=== PATIENT | male | born 1950 | race Caucasian/White ===

== ENCOUNTER 2017-01-20 05:44 | Inpatient (IN) | payer MEDICARE ==
[2017-01-20] VITALS (9 sets, daily range): BP systolic 140–159; BP diastolic 74–89; PULSE 53–83; RESP 16–18; TEMP 97.5–98.2; O2SAT 92–98
[~2017-01-20] VITALS: Ht 167.6 cm; Wt 98.7 kg
[2017-01-20] MEDS ORDERED: Hold AM Insulin & AM Hypoglycemic medications in diabetic patients XX PRN (06:30)
[2017-01-20] MEDS ORDERED: SODIUM CHLORID 0.9% 500 ML IV SCH (06:30)
[2017-01-20] MEDS: LACTATED RINGER'S 1000 ML IV SCH (06:30)
[2017-01-20] MEDS ORDERED: ceFAZolin 2 GM PREMIX 50 ML IV SCH (06:30)
[2017-01-20] MEDS ORDERED: POVIDONE IODINE 5% (ANTISEPSIS KIT) 4 APPLICATIONS EACH NARE SCH (06:30)
[2017-01-20] MEDS ORDERED: NO Heparin, Lovenox, Coumadin at least 12 hours prior to procedure. XX PRN (06:30)
[2017-01-20] MEDS ORDERED: MUPIROCIN 2% OINT 1 APPLIC/GM SYR NASAL SCH (06:30)
[2017-01-20] MEDS ORDERED: LORazepam 1 MG TAB SL SCH (06:30)
[2017-01-20] MEDS ORDERED: NS 1000 ML IV SCH (06:30)
[2017-01-20] MEDS ORDERED: METOPROLOL TARTRATE 25 MG TAB PO PRN (06:30)
[2017-01-20] MEDS ORDERED: CHLORHEXIDINE GLUCONATE 2 % 1 PACK (2 CLOTHS) TOP SCH (06:30)
[2017-01-20] MEDS ORDERED: INSULIN HUMAN REGULAR 1,000 UNITS/10 ML VIAL SQ PRN (06:30)
[2017-01-20] MEDS ORDERED: VANCOMYCIN 1000 MG/NS 250 ML IV SCH ×2 (06:30)
[2017-01-20 06:31] LABS: AUTOMATED NEUTROPHIL # 3.4 TH/MM3 (1.8-7.7); BASOPHIL % 0.8 % (0.0-2.0); EOSINOPHIL # 0.2 TH/MM3 (0-0.4); EOSINOPHIL % 3.6 % (0.0-4.0); HEMATOCRIT 39.2 % (39.0-51.0); HEMO FLAGS DIFF FINAL; LYMPH % 23.7 % (9.0-44.0); LYMPHOCYTE # 1.3 TH/MM3 (1.0-4.8); MEAN CELL VOLUME 88.5 FL (80.0-100.0); MEAN CORPUSCULAR HEMOGLOBIN 30.5 PG (27.0-34.0); MEAN CORPUSCULAR HGB CONC 34.5 % (32.0-36.0); MONO % 12.3 % (0.0-8.0); NEUT % 59.6 % (16.0-70.0); PLATELET COUNT 145 TH/MM3 (150-450); RED BLOOD COUNT 4.44 MIL/MM3 (4.50-5.90); RED CELL DISTRIBUTION WIDTH 13.6 % (11.6-17.2); WHITE BLOOD COUNT 5.7 TH/MM3 (4.0-11.0)
[2017-01-20] MEDS ORDERED: CARV3.12 PO (06:34)
[2017-01-20] MEDS ORDERED: RANI300T PO (06:34)
[2017-01-20] MEDS ORDERED: HYDR25TA5 PO (06:34)
[2017-01-20] MEDS ORDERED: PRAV80TA2 PO (06:34)
[2017-01-20] MEDS ORDERED: TERA10CA3 PO (06:34)
[2017-01-20] MEDS ORDERED: ASPI81TA81 (06:34)
[2017-01-20] MEDS ORDERED: LOSA100T PO (06:34)
[2017-01-20] MEDS ORDERED: AMLO5TAB2 PO (06:34)
[2017-01-20 06:38] LABS: APTT (PATIENT) 25.7 SEC (24.3-30.1); PROTHROMBIN TIME - PATIENT 11.3 SEC (9.8-11.6)
[2017-01-20 06:58] LABS: BICARBONATE 29.6 MEQ/L (21.0-32.0); POTASSIUM 3.8 MEQ/L (3.5-5.1)
[2017-01-20] MEDS ORDERED: HEPARIN-NS/PF INJ 500 ML ONE (09:08)
[2017-01-20] MEDS ORDERED: LIDOCAINE HCL 2% 50 ML VIAL ONE (09:09)
[2017-01-20] MEDS ORDERED: VANCOMYCIN HCL 1000 MG VIAL ONE (09:09)
[2017-01-20] MEDS ORDERED: VANCOMYCIN 500 MG VIAL ONE (09:09)
[2017-01-20] MEDS ORDERED: ceFAZolin INJ 1,000 MG VIAL ONE (09:10)
[2017-01-20] MEDS ORDERED: ISOPROTERENOL HCL 1 MG/5 ML AMP ONE (09:26)
[2017-01-20] MEDS ORDERED: SODIUM CHLORIDE 0.9% FLUSH 5 ML FLUSH IVF PRN (11:45)
[2017-01-20] MEDS ORDERED: LORazepam 2 MG/ML VIAL IV PRN (11:45)
[2017-01-20] MEDS ORDERED: ATROPINE SULFATE 1 MG/ML VIAL IV PRN (11:45)
[2017-01-20] MEDS ORDERED: BACITRACIN OINT 0.9 GM PKT TOP ONE (11:45)
[2017-01-20] MEDS ORDERED: LIDOCAINE HCL 1% 50 ML VIAL INFIL PRN (11:45)
[2017-01-20] MEDS ORDERED: METOCLOPRAMIDE HCL 10 MG/2 ML VIAL IV PRN (11:45)
[2017-01-20] MEDS ORDERED: ONDANSETRON HCL 4 MG/2 ML VIAL IV PRN (11:45)
[2017-01-20] MEDS ORDERED: SODIUM CHLOR 0.9% 250 ML INJ 250 ML IV PRN (11:45)
[2017-01-20] MEDS ORDERED: MIDAZOLAM HCL 2 MG/2 ML VIAL ONE (12:01)
[2017-01-20] MEDS ORDERED: DO NOT ADM ANY ANTICOAGULANT DRUGS XX PRN (12:15)
[2017-01-20] MEDS ORDERED: PROPOFOL 200 MG/20 ML AMP IV ONE (14:49)
[2017-01-20] MEDS: ceFAZolin 2 GM PREMIX 50 ML IV SCH (18:03)
[2017-01-20] MEDS: oxyCODONE/ACETAMINOPHEN 5 MG/325 MG TAB PO PRN ×2 (18:19→22:54)
--- NOTE | 2017-01-20 18:30 | EKG ---
Date Performed: 01/20/2017 Time Performed: 06:35:48 PTAGE: 67 years EKG: Sinus bradycardia with PVC(s) Left bundle branch block Abnormal ECG NO PREVIOUS TRACING DOCTOR: Emanuel Markham Interpretating Date/Time 01/20/2017 18:28:58
[2017-01-20] MEDS: CARVEDILOL 3.125 MG TAB PO SCH (22:54)
[2017-01-20] MEDS: TERAZOSIN HCL 5 MG CAP PO SCH (22:55)
[2017-01-20] MEDS: FAMOTIDINE 20 MG TAB PO SCH (22:55)
[2017-01-20] MEDS: SODIUM CHLORIDE 0.9% FLUSH 5 ML FLUSH IVF SCH (22:57)
[2017-01-21] VITALS (26 sets, daily range): BP systolic 118–145; BP diastolic 60–89; PULSE 64–78; RESP 16–18; TEMP 97.8–98.5; O2SAT 93–96
[2017-01-21] MEDS: ceFAZolin 2 GM PREMIX 50 ML IV SCH ×2 (02:42→08:52)
[2017-01-21] MEDS: oxyCODONE/ACETAMINOPHEN 5 MG/325 MG TAB PO PRN ×4 (02:43→21:22)
--- NOTE | 2017-01-21 05:37 | MA ---
cc: LUMA KING M.D. DATE 01/20/2017 PROCEDURE PERFORMED Electrophysiology study and CS cannulation. INDICATIONS Mr. Cadena is a 67-year-old gentleman with congestive heart failure, cardiomyopathy, ejection fraction 25% to undergo electrophysiology study. The risks, the nature and the benefit of the procedure were clearly stated to him. The risks include pneumothorax, cardiac perforation, stroke, need for open heart surgery and even . The patient understood and agreed to proceed. PROCEDURE After written informed consent was obtained, the patient was brought to the EP Lab where he was prepped and draped in usual sterile fashion. Conscious sedation was initiated and maintained throughout the procedure by the anesthesiologist. Once sedation was verified, the right inguinal area anesthetized with 2% Xylocaine. Using the modified Seldinger technique, the right femoral vein was cannulated on four occasions, four guidewires were advanced. Over the wire three 5 and a 6-Bruneian Hemaquet were advanced. Then under fluoroscopic guidance through the 5 and 6-Bruneian Hemaquet, four 5-Bruneian Agus curved quadripolar electrophysiology catheters was positioned at the His, upper right atrium, coronary sinus and right ventricular apex. Basic interval was measured. HV was around 65 milliseconds. At this point atrial pacing protocol was performed. Atrial protocol consisted of incremental atrial pacing as well as program stimulation with 110 cycle length and up one extrastimuli delivered. No tachyarrhythmia was induced. Then ventricular pacing protocol was performed. Ventricular pacing protocol consisted of incremental ventricular pacing as well as program stimulation with 110 cycle length and up to three extrastimuli delivered. During ventricular pacing protocol blood pressure dropped to systolic in the 60s. increased with medication. I decided to discontinue ventricular pacing protocol. All catheters and Hemaquets were removed. The patient is going to be kept on the table and a biventricular pacer defibrillator will be implanted for sudden prevention and resynchronization therapy. The patient tolerated the procedure, blood loss minimal. 1. Electrocardiogram: At baseline the patient was in sinus. Postprocedure electrocardiogram was unchanged. 2. Basic Interval: Basic interval was around 840, AH at 140 and HV at 65 milliseconds. 3. Atrial Pacing Protocol: Wenckebach of the node was around 700 milliseconds. 4. Ventricular Pacing Protocol: No tachyarrhythmia was induced. Ventricular pacing protocol was discontinued due to severe hypotension. CONCLUSION Negative electrophysiology study for supraventricular tachyarrhythmia. COMMENT AND RECOMMENDATIONS The patient has congestive heart failure Class III on optimal medical treatment. Ejection fraction 25%, QRS over 140 milliseconds. The patient will be kept on the table and biventricular pacer defibrillator will be implanted for sudden prevention and resynchronization therapy. Luma King MD HS/SSB /11:12 PM /5:16 AM
[2017-01-21] MEDS: HYDROCHLOROTHIAZIDE 25 MG TAB PO SCH (08:49)
[2017-01-21] MEDS: amLODIPine BESYLATE 5 MG TAB PO SCH (08:50)
[2017-01-21] MEDS: LOSARTAN 50 MG TAB PO SCH (08:51)
[2017-01-21] MEDS: FAMOTIDINE 20 MG TAB PO SCH ×2 (08:51→21:22)
[2017-01-21] MEDS: SODIUM CHLORIDE 0.9% FLUSH 5 ML FLUSH IVF SCH ×2 (08:52→21:23)
[2017-01-21] MEDS: PRAVASTATIN SOD 80 MG TAB PO SCH (08:52)
[2017-01-21] MEDS: CARVEDILOL 3.125 MG TAB PO SCH ×2 (08:52→21:22)
--- NOTE | 2017-01-21 12:30 | EKG ---
Date Performed: 01/20/2017 Time Performed: 12:27:36 PTAGE: 67 years EKG: Sinus rhythm WITH P WAVE SYNCHRONOUS VENTRICULAR PACING PACING WAS NOT ON PREVIOUS TRACING PREVIOUS TRACIN01/20/2017 06.35 DOCTOR: Kahlil Urias Interpretating Date/Time 01/21/2017 12:28:59
--- NOTE | 2017-01-21 12:34 | PD.CARD.PN ---
Subjective Subjective Remarks Awake, alert, s/p BiV implant. Had significant diaphragmatic stimulation and the LV lead was turned off. He is pending an epicardial lead by Dr. Watson, per Dr. Madison's d/w him. Objective Medications Current Medications Medications (Trade) Dose Ordered Sig/Meng Route Start Time Stop Time Status Last Admin (Lr 1000 ml Inj) 1,000 ml @ 30 mls/hr Q24H IV 01/20/17 06:30 Miscellaneous Information Hold AM Insulin & ... UNSCH PRN XX 01/20/17 06:30 01/24/17 06:29 Miscellaneous Information NO Heparin, Loven... UNSCH PRN XX 01/20/17 06:30 01/24/17 06:29 (NS 1000 ml Inj) 1,000 ml @ 30 mls/hr Q24H IV 01/20/17 06:30 (NS Flush) 2 ml BID IVF 01/20/17 21:00 01/21/17 08:52 (NS Flush) 2 ml UNSCH PRN IVF 01/20/17 11:45 (Percocet 5-325 Mg) 1 tab Q4H PRN PO 01/20/17 11:45 01/21/17 08:51 (Percocet 5-325 Mg) 2 tab Q4H PRN PO 01/20/17 11:45 (Atropine Inj) 0.5 mg UNSCH PRN IV 01/20/17 11:45 (Reglan Inj) 10 mg Q4H PRN IV 01/20/17 11:45 (Zofran Inj) 4 mg Q4H PRN IV 01/20/17 11:45 (Norvasc) 5 mg DAILY PO 01/21/17 09:00 01/21/17 08:50 (Coreg) 3.125 mg BID PO 01/20/17 21:00 01/21/17 08:52 (Hydrodiuril) 25 mg DAILY PO 01/21/17 09:00 01/21/17 08:49 (Cozaar) 100 mg DAILY PO 01/21/17 09:00 01/21/17 08:51 (Pravachol) 80 mg DAILY PO 01/21/17 09:00 01/21/17 08:52 (Pepcid) 20 mg BID PO 01/20/17 21:00 01/21/17 08:51 (Hytrin) 20 mg HS PO 01/20/17 21:00 01/20/17 22:55 Vital Signs / I&O Vital Signs Date Time Temp Pulse Resp B/P Pulse Ox O2 Delivery O2 Flow Rate FiO2 01/21/17 09:59 18 01/21/17 08:00 98.1 73 18 145/83 93 01/21/17 06:00 69 01/21/17 05:00 68 01/21/17 04:00 68 01/21/17 03:27 97.9 70 16 131/66 93 01/21/17 03:00 70 01/21/17 02:00 70 01/21/17 01:39 97.9 70 16 118/69 94 01/21/17 01:00 68 01/21/17 00:00 74 01/20/17 22:00 74 01/20/17 21:00 74 01/20/17 20:28 98.2 83 16 140/74 92 01/20/17 20:00 78 01/20/17 19:00 69 01/20/17 16:07 69 01/20/17 15:00 97.6 78 18 147/82 97 01/20/17 14:54 69 I/O 01/20/17 01/20/17 01/20/17 01/21/17 01/21/17 01/21/17 07:00 15:00 23:00 07:00 15:00 23:00 Intake Total 620 ml Output Total 400 ml 150 ml Balance -400 ml 620 ml -150 ml Intake Oral 420 ml IV Total 200 ml Output Urine Total 400 ml 150 ml # Voids 2 Physical Exam GENERAL: Well-nourished, well-developed patient. SKIN: Warm and dry. LCW incision well approximated without erythema or drainage. HEAD: Normocephalic. EYES: No scleral icterus. No injection or drainage. NECK: Supple, trachea midline. No JVD or lymphadenopathy. CARDIOVASCULAR: Regular rate and rhythm without murmurs, gallops, or rubs. RESPIRATORY: Breath sounds equal bilaterally. No accessory muscle use. GASTROINTESTINAL: Abdomen soft, non-tender, nondistended. EXTREMITIES: No cyanosis, or edema. NEUROLOGICAL: Awake, alert, and oriented x 3. Non-focal. Assessment and Plan Problem List: (1) Hypertension Assessment and Plan: Stable on home medications. (2) Cardiomyopathy Assessment and Plan: Meds optimized. BiV implanted but LV lead off d/t diaph. stim. pending epicardial lead implant. (3) Diaphragmatic stimulation by pacemaker Assessment and Plan: NPO after mn for epicardial lead implantation tomorrow. (4) S/P biventricular cardiac pacemaker procedure Assessment and Plan: interrogation stable, incision clean. Will get CXR for post procedure eval. Assessment and Plan Assessment and plan d/w pt., , RN, Dr. Madison, CHRIS Matamoros. Problem Qualifiers (1) Hypertension: Qualified Code: I10 - Essential hypertension (2) Cardiomyopathy: Qualified Code: I42.9 - Cardiomyopathy, unspecified type Nickie Norris Jan 21, 2017 12:34
--- NOTE | 2017-01-21 12:53 | EKG ---
Date Performed: 01/21/2017 Time Performed: 06:02:34 PTAGE: 67 years EKG: ATRIAL PACED RHYTHM VENTRICULAR PREMATURE COMPLEX LBBB PREVIOUS TRACING : 01/20/2017 12.27 DOCTOR: Kahlil Urias Interpretating Date/Time 01/21/2017 12:53:02
--- NOTE | 2017-01-21 15:33 | RADRPT ---
EXAM DATE/TIME: 01/21/2017 12:45 [facility] COMPARISON: No previous studies available for comparison. INDICATIONS : Evaluate chest post procedure MEDICAL HISTORY : Cardiovascular disease. SURGICAL HISTORY : None. ENCOUNTER: Initial ACUITY: 1 day PAIN SCORE: 2/10 LOCATION: chest FINDINGS: Portable upright expiratory view the chest demonstrates a normal-sized cardiac silhouette. Left chest wall cardiac pacing device/AICD is present. Biventricular leads are present. Lungs are underinflated with atelectasis at the bases. No pneumothorax is identified. Left chest wall appearance suggests po ssible old rib fractures. There are degenerative changes at the left glenohumeral joint. CONCLUSION: No pneumothorax is visualized following recent procedure. No acute finding is identified. Augustine Lara MD on January 21, 2017 at 15:30 Board Certified Radiologist. This report was verified electronically.
[2017-01-21] MEDS ORDERED: ceFAZolin 2 GM PREMIX 50 ML IV SCH (17:45)
[2017-01-21] MEDS ORDERED: CHLORHEXIDINE GLUCONATE 4% SOLN 120 ML BTL TOPICAL SCH (17:45)
[2017-01-21] MEDS ORDERED: SODIUM CHLORIDE 0.9% FLUSH 5 ML FLUSH IV FLUSH PRN (17:45)
[2017-01-21] MEDS ORDERED: CEFAZOLIN INJ 500 MG in SODIUM CHLORIDE 0.9% IRR BTL 500 ML IRRIGATION SCH (17:45)
[2017-01-21] MEDS ORDERED: SODIUM CHLORIDE 0.9% FLUSH 5 ML FLUSH IV FLUSH SCH (21:00)
[2017-01-21] MEDS: TERAZOSIN HCL 5 MG CAP PO SCH (21:22)
[2017-01-22] VITALS (23 sets, daily range): BP systolic 130–153; BP diastolic 78–88; PULSE 68–74; RESP 16; TEMP 97.4–98.3; O2SAT 92–94
[2017-01-22 04:01] LABS: BLOOD, URINE NEG (NEG); GLUCOSE,URINE NEG (NEG); KETONE, URINE NEG (NEG); MUCUS URINE FEW /lpf (OCC); NITRITE,URINE NEG (NEG); URINE COLOR LIGHT-YELLOW (YELLW/STRAW)
[2017-01-22 04:36] LABS: COMMENT (UR) CULT NOT INDICATED; CULTURE IF INDICATED CULT NOT INDICATED
[2017-01-22] MEDS: CARVEDILOL 3.125 MG TAB PO SCH ×2 (06:16→22:58)
[2017-01-22] MEDS: oxyCODONE/ACETAMINOPHEN 5 MG/325 MG TAB PO PRN ×3 (06:17→22:58)
[2017-01-22] MEDS: LACTATED RINGER'S 1000 ML IV SCH (06:21)
[2017-01-22] MEDS ORDERED: HEPARIN SODIUM - SQ 10,000 UNITS/ML VIAL ONE (07:18)
[2017-01-22] MEDS ORDERED: BUPIVACAINE LIPOSO PF 1.3% INJ 20 ML, DEXAMETHASONE INJ 4 MG in SODIUM CHLORIDE 0.9% IN... PERIART SCH (07:30)
[2017-01-22] MEDS: SODIUM CHLORIDE 0.9% FLUSH 5 ML FLUSH IVF SCH ×2 (09:00→21:00)
[2017-01-22] MEDS ORDERED: ONDANSETRON HCL 4 MG/2 ML VIAL IV PUSH PRN (10:15)
[2017-01-22] MEDS ORDERED: SODIUM CHLORIDE 0.9% FLUSH 5 ML FLUSH IV FLUSH PRN (10:15)
[2017-01-22] MEDS ORDERED: RESP: ALBUTEROL 2.5 MG/3 ML NEB (PRN) NEB (10:15)
[2017-01-22] MEDS ORDERED: MAGNESIUM HYDROXIDE SUSP 30 ML CUP PO PRN (10:15)
[2017-01-22] MEDS ORDERED: Post-op Orders (for Pharmacy) MISC OTHER ONE (10:15)
[2017-01-22] MEDS ORDERED: oxyCODONE/ACETAMINOPHEN 5 MG/325 MG TAB PO PRN ×2 (10:15)
[2017-01-22] MEDS ORDERED: ACETAMINOPHEN 325 MG TAB PO PRN (10:15)
[2017-01-22] MEDS ORDERED: DEXAMETHASONE SOD PHOS 4 MG/ML VIAL ONE (10:24)
[2017-01-22] MEDS ORDERED: fentaNYL CITRATE 250 MCG/5 ML AMP ONE (10:34)
[2017-01-22] MEDS ORDERED: *morphine SULFATE 8 MG/ML PERIprocedure ONLY ONE ×3 (10:36→11:23)
--- NOTE | 2017-01-22 10:44 | MB ---
cc: MICHEL BARBOSA MD DATE OF CONSULTATION 01/21/2017 DATE OF 1950 IDENTIFYING DATA This is a 67-year-old male. PHYSICIANS Dr. John Madison. PRIMARY CARE PHYSICIAN Gabby Clark, physician advertising sales assistant. HISTORY OF PRESENT ILLNESS The patient apparently presented to Dr. Madison's office reporting dyspnea and fatigue, also worsening moderate dyspnea was first noted a few months ago. Shortness of breath occurs with minimal levels of exertion. Denied having any chest pain or anginal discomfort. No palpitations. No syncope. No edema. No weight change. No recent fever, chills, cough. He underwent echocardiogram which showed cardiomyopathy, EF of 25%, underwent EP study, CS cannulation by Dr. Madison on 01/20/2017. The patient had negative EP study for SVT. The patient has congestive heart failure Class III an optimal medical treatment, EF of 25, QRS over 140 milliseconds. BiV pacer defibrillator was implanted for sudden prevention, resynchronization therapy. However, the patient had significant diaphragmatic stimulation. The LV lead was turned off. We were consulted to evaluate for epicardial lead placement in the a.m. The patient also had diaphragmatic stimulation post the LV lead placement. Therefore it was also turned off. PAST MEDICAL HISTORY 1. Sleep apnea. 2. Essential hypertension. 3. Gastroesophageal reflux disease. 4. Left bundle-branch block. 5. Hyperlipidemia. 6. Nonischemic cardiomyopathy. PAST SURGICAL HISTORY 1. Hernia repair. 2. Knee arthroscopic surgery. ALLERGIES The patient has no known allergies. MEDICATIONS 1. Terazosin. 2. Losartan. 3. Coreg. 4. Amlodipine. 5. Pravachol. 6. Ranitidine. 7. Aspirin. 8. Hydrochlorothiazide. FAMILY HISTORY Mother had kidney disease. Father had a stroke. SOCIAL HISTORY Occasional alcohol. No tobacco. REVIEW OF SYSTEMS As above in the HPI. PHYSICAL EXAMINATION VITAL SIGNS: Blood pressure 118/70, heart rate of 70, afebrile. GENERAL: The patient is awake and alert, in no acute distress. HEENT: Head is normocephalic, atraumatic. Pupils equal, reactive. Oral mucosa pink, moist. NECK: Supple. No JVD. HEART SOUNDS: S1-S2. Regular rate and rhythm. No audible rubs, murmurs, gallops. LUNGS: Clear to auscultation. No wheezes, rales or rhonchi. CHEST: He has a dressing over his left upper chest wall. ABDOMEN: Soft, nontender. No masses or organomegaly. EXTREMITIES: No cyanosis, clubbing or edema. LABORATORY FINDINGS Hemoglobin 13, hematocrit 39, white cell count 5.7, platelet count 145. Sodium 142, potassium 3.8, BUN 20, creatinine 1.08. INR 1.0. CHEST X-RAY No pneumothorax post recent EP study and placement of BiV defibrillator. Normal-sized cardiac silhouette. Left chest wall appearance suggested some possible old rib fractures. IMPRESSION This is a 67-year-old male with nonischemic cardiomyopathy, EF of 25%, CHF Class III, status post EP study which was negative. BiV ICD was placed. The patient had significant diaphragmatic stimulation. The LV lead was turned off. We were consulted for the epicardial lead placement. PLAN The patient will be scheduled for a left thoracotomy with epicardial lead placement and related procedures. The procedures, alternatives and risks will be discussed with Dr. Michel Barbosa. Dictated by FARZANEH Matamoros Michel MCDONOUGH/LANDEN /5:26 PM /10:35 AM
--- NOTE | 2017-01-22 10:59 | RADRPT ---
EXAM DATE/TIME: 01/22/2017 10:27 [facility] COMPARISON: CHEST SINGLE AP, January 21, 2017, 12:45. INDICATIONS : Evaluate heart and lungs post Thoracotomy. MEDICAL HISTORY : Cerebrovascular disease. SURGICAL HISTORY : Pacemaker. ENCOUNTER: Initial ACUITY: 1 day PAIN SCORE: Non-responsive. LOCATION: chest FINDINGS: Mild consolidation and small effusions seen of both bases, left more so than right. I don't see a pne umothorax. Mild cardiomegaly similar to before. Patient has a cardiac pacer/defibrillator. 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 CONCLUSION: Worsening bibasilar consolidation, especially on the left. Augustine Pettit MD on January 22, 2017 at 10:57 Board Certified Radiologist. This report was verified electronically.
[2017-01-22] MEDS: ACETAMINOPHEN 1000 MG/100 ML VIAL IV SCH ×2 (11:15→16:15)
[2017-01-22] MEDS: KETOROLAC TROMETHAMINE 30 MG/ML (IVP) VIAL IV PUSH SCH ×2 (11:15→17:00)
[2017-01-22] MEDS ORDERED: ONDANSETRON HCL 4 MG/2 ML VIAL IV PUSH ONE (12:00)
[2017-01-22] MEDS ORDERED: PROPOFOL 200 MG/20 ML AMP IV ONE (12:00)
--- NOTE | 2017-01-22 12:07 | PD.OP ---
cc: Lauren Watson MD; Frankie Madison MD Operative Report Date of Surgery: Jan 22, 2017 Preoperative Diagnosis: Postoperative Diagnosis: Procedure: 1. Left Lateral Mini-Thoracotomy 2. Epicardial Left Ventricular Lead Placement 3. Removal of Coronary Sinus Lead 4. Removal and Replacement of BiVentricular Pacemaker-AICD Generator Device 5. Intercostal nerve Block. . Surgeon: Lauren Watson Drier Helper(s): Sebastian Bhagat Operation and Findings: PREOPERATIVE DIAGNOSIS 1. Cardiomyopathy 2. CHF POSTOPERATIVE DIAGNOSIS same PROCEDURES 1. Left Lateral Mini-Thoracotomy 2. Epicardial Left Ventricular Lead Placement 3. Removal of Coronary Sinus Lead 4. Removal and Replacement of BiVentricular Pacemaker-AICD Generator Device 5. Intercostal nerve Block. SURGEON Lauren Watson MD RENEWABLE [employer]GY DIVISION MANAGER Star Bhakta [facility] ANESTHESIA General Double-lumen endotracheal. TOP TAPER MACHINE PITO Raza MD OPERATIVE TIME Please see record. COMPLICATIONS None. INDICATION FOR PROCEDURE The patient is a 67yo with cardiomyopathy and recurrent CHF who is being brought to the operating room for epicardial left ventricular lead placement following percutaneous CS lead placement with diaphragmatic pacing. DESCRIPTION OF PROCEDURE The patient was brought to the operating suite and placed in supine position with the left chest slightly elevated. Following satisfactory induction of general endotracheal anesthesia, he was prepped and draped in the usual sterile fashion. A mini-thoracotomy (5 cm) was then performed in the 4th ICS anterior axillary line and carried down to the pleura. 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 With gentle sharp and blunt dissection, the left pleural space was entered. The pericardium was identified. There was a thick layer of fat overlying the pericardium which was dissected free. A pericardiotomy was performed posterior to the phrenic nerve, with care being taken to avoid direct or traction injury to the neurovascular bundle, and viable left ventricular muscle identified. A [employer] LV screw in lead was placed on the ventricular surface. Serial # [id number], REF # [id number]. Parameters measured were excellent with threshold of 1.0 V at 10.5 ms and impedence of 430 ohms. The previously closed infraclavicular incision was opened and the pocket irrigated with antibiotic solution. The malfunctioning coronary sinus lead was easily extracted with gentle traction and removed. The RA and RV leads were disconnected from the generator device it was replaced with a new device Serial # [id number]. The lead was tunneled and connected to the generator device as were the RA & RV leads. A #24-Azeri Hung drain was placed in the pleural space. Intercostal nerve block was performed at the level of the incision and 2 rib spaces above and below using Exparel solution. Wounds were closed with 2-0, 3-0, and 4-0 Monocryl. The patient tolerated the procedure well and postoperatively went to recovery in stable condition. Lauren Watson MD Jan 22, 2017 12:07
[2017-01-22] MEDS ORDERED: CEPH-460 PO (14:21)
[2017-01-22] MEDS: RESP: ALBUTEROL 2.5 MG/3 ML NEB (SCH) NEB ×2 (16:40→20:33)
[2017-01-22] MEDS: TERAZOSIN HCL 5 MG CAP PO SCH (21:00)
[2017-01-22] MEDS: FAMOTIDINE 20 MG TAB PO SCH (21:00)
[2017-01-22] MEDS: DOCUSATE CALCIUM 240 MG CAP PO SCH (22:59)
[2017-01-22] MEDS: SODIUM CHLORIDE 0.9% FLUSH 5 ML FLUSH IV FLUSH SCH (23:00)
[2017-01-22] MEDS: PANTOPRAZOLE SOD 40 MG DELAYED RELEASE TAB PO SCH (23:13)
[2017-01-23] VITALS (32 sets, daily range): BP systolic 140–149; BP diastolic 60–88; PULSE 69–90; RESP 16–20; TEMP 98–98.7; O2SAT 90–98
[2017-01-23] MEDS: RESP: ALBUTEROL 2.5 MG/3 ML NEB (SCH) NEB ×4 (03:08→21:02)
[2017-01-23] MEDS: oxyCODONE/ACETAMINOPHEN 5 MG/325 MG TAB PO PRN ×3 (03:23→20:58)
--- NOTE | 2017-01-23 03:41 | RADRPT ---
EXAM DATE/TIME: 01/23/2017 03:06 [facility] COMPARISON: CHEST SINGLE AP, January 22, 2017, 10:27. INDICATIONS : Shortness of breath, possible pulmonary disease. MEDICAL HISTORY : Cardiovascular disease. SURGICAL HISTORY : Pacemaker. Thoracotomy ENCOUNTER: Subsequent ACUITY: 2 days PAIN SCORE: 4/10 LOCATION: Bilateral chest FINDINGS: Persistent consolidation in the left medial lower lung causing loss of delineation of medial one half diaphragm. New ill-defined opacity in the right lower medial lung suggests a new infiltrate. The h eart is normal in size. Cardiac pacer box and leads are stable. CONCLUSION: Persistent left lower lobe consolidation and new non-consolidative infiltrate in the medial right low er lung. Dov Saravia MD on January 23, 2017 at 3:39 Board Certified Radiologist. This report was verified electronically.
[2017-01-23 04:34] LABS: AUTOMATED NEUTROPHIL # 9.6 TH/MM3 (1.8-7.7); BASOPHIL % 0.1 % (0.0-2.0); HEMATOCRIT 38.4 % (39.0-51.0); HEMO FLAGS DIFF FINAL; LYMPH % 7.4 % (9.0-44.0); LYMPHOCYTE # 0.9 TH/MM3 (1.0-4.8); MEAN CELL VOLUME 88.7 FL (80.0-100.0); MEAN CORPUSCULAR HEMOGLOBIN 31.5 PG (27.0-34.0); MEAN CORPUSCULAR HGB CONC 35.5 % (32.0-36.0); MONO % 13.6 % (0.0-8.0); NEUT % 78.9 % (16.0-70.0); PLATELET COUNT 110 TH/MM3 (150-450); RED BLOOD COUNT 4.32 MIL/MM3 (4.50-5.90); RED CELL DISTRIBUTION WIDTH 13.3 % (11.6-17.2); WHITE BLOOD COUNT 12.2 TH/MM3 (4.0-11.0)
[2017-01-23 05:16] LABS: BICARBONATE 25.9 MEQ/L (21.0-32.0); POTASSIUM 3.9 MEQ/L (3.5-5.1)
[2017-01-23] MEDS: LACTATED RINGER'S 1000 ML IV SCH (06:30)
--- NOTE | 2017-01-23 08:31 | PD.CAR.PN ---
CVT Progress Note Subjective/Hospital Course: 01/22 PROCEDURES 1. Left Lateral Mini-Thoracotomy 2. Epicardial Left Ventricular Lead Placement 3. Removal of Coronary Sinus Lead 4. Removal and Replacement of BiVentricular Pacemaker-AICD Generator Device 5. Intercostal nerve Block. 01/23 Doing well Expect removal of CT tomorrow and discharge home in am Objective: Vital Signs Date Time Temp Pulse Resp B/P Pulse Ox O2 Delivery O2 Flow Rate FiO2 01/23/17 08:01 71 01/23/17 07:59 71 01/23/17 06:00 73 01/23/17 05:00 75 01/23/17 04:15 98.7 69 20 141/64 94 01/23/17 04:00 75 01/23/17 03:00 69 01/23/17 02:00 80 01/23/17 01:21 98.1 72 16 140/79 94 01/23/17 01:00 72 01/23/17 00:00 72 01/22/17 23:00 68 01/22/17 22:00 70 01/22/17 21:00 72 01/22/17 20:34 93 Nasal Cannula 2.00 01/22/17 20:20 98.1 68 16 130/78 93 01/22/17 20:00 70 01/22/17 19:00 68 01/22/17 18:00 70 01/22/17 17:00 68 01/22/17 16:00 70 01/22/17 15:00 97.9 72 16 134/80 94 01/22/17 15:00 73 01/22/17 14:00 16 141/88 93 01/22/17 13:00 68 01/22/17 12:30 97.4 70 16 150/88 92 01/22/17 12:30 97.4 70 16 150/88 92 01/22/17 11:30 76 16 148/83 95 Nasal Cannula 3 01/22/17 11:15 70 16 144/85 94 Nasal Cannula 3 01/22/17 11:00 76 16 147/85 94 Nasal Cannula 3 01/22/17 10:45 70 16 133/90 97 Nasal Cannula 3 01/22/17 10:30 62 16 140/76 96 Simple Mask 6 01/22/17 10:23 98.0 72 16 132/74 90 Simple Mask 6 Labs: Laboratory Tests Test 01/23/17 03:54 White Blood Count 12.2 TH/MM3 (4.0-11.0) Red Blood Count 4.32 MIL/MM3 (4.50-5.90) Hemoglobin 13.6 GM/DL (13.0-17.0) Hematocrit 38.4 % (39.0-51.0) Mean Corpuscular Volume 88.7 FL (80.0-100.0) Mean Corpuscular Hemoglobin 31.5 PG (27.0-34.0) Mean Corpuscular Hemoglobin 35.5 % Concent (32.0-36.0) Red Cell Distribution Width 13.3 % (11.6-17.2) Platelet Count 110 TH/MM3 (150-450) Mean Platelet Volume 9.5 FL (7.0-11.0) Neutrophils (%) (Auto) 78.9 % (16.0-70.0) Lymphocytes (%) (Auto) 7.4 % (9.0-44.0) Monocytes (%) (Auto) 13.6 % (0.0-8.0) Eosinophils (%) (Auto) 0.0 % (0.0-4.0) Basophils (%) (Auto) 0.1 % (0.0-2.0) Neutrophils # (Auto) 9.6 TH/MM3 (1.8-7.7) Lymphocytes # (Auto) 0.9 TH/MM3 (1.0-4.8) Monocytes # (Auto) 1.6 TH/MM3 (0-0.9) Eosinophils # (Auto) 0.0 TH/MM3 (0-0.4) Basophils # (Auto) 0.0 TH/MM3 (0-0.2) CBC Comment DIFF FINAL Differential Comment Sodium Level 138 MEQ/L (136-145) Potassium Level 3.9 MEQ/L (3.5-5.1) Chloride Level 101 MEQ/L (98-107) Carbon Dioxide Level 25.9 MEQ/L (21.0-32.0) Anion Gap 11 MEQ/L (5-15) Blood Urea Nitrogen 25 MG/DL (7-18) Creatinine 1.16 MG/DL (0.60-1.30) Estimat Glomerular Filtration 62 ML/MIN (>89) Rate Random Glucose 138 MG/DL (74-106) Calcium Level 8.7 MG/DL (8.5-10.1) Result Diagram: 01/23/17 0354 01/23/17 0354 (1) Hypertension Plan: Stable on home medications. (2) Cardiomyopathy Plan: Meds optimized. BiV implanted but LV lead off d/t diaph. stim. pending epicardial lead implant. (3) Diaphragmatic stimulation by pacemaker Plan: NPO after mn for epicardial lead implantation tomorrow. (4) S/P biventricular cardiac pacemaker procedure Plan: interrogation stable, incision clean. Will get CXR for post procedure eval. Problem Qualifiers (1) Hypertension: Qualified Code: I10 - Essential hypertension (2) Cardiomyopathy: Qualified Code: I42.9 - Cardiomyopathy, unspecified type Lauren Watson MD Jan 23, 2017 08:31
[2017-01-23] MEDS: HYDROCHLOROTHIAZIDE 25 MG TAB PO SCH ×2 (08:51→09:00)
[2017-01-23] MEDS: CARVEDILOL 3.125 MG TAB PO SCH ×2 (08:51→20:58)
[2017-01-23] MEDS: PRAVASTATIN SOD 80 MG TAB PO SCH (08:52)
[2017-01-23] MEDS: FAMOTIDINE 20 MG TAB PO SCH ×2 (08:52→20:58)
[2017-01-23] MEDS: amLODIPine BESYLATE 5 MG TAB PO SCH (09:00)
[2017-01-23] MEDS: SODIUM CHLORIDE 0.9% FLUSH 5 ML FLUSH IV FLUSH SCH (09:00)
[2017-01-23] MEDS: LOSARTAN 50 MG TAB PO SCH (09:00)
[2017-01-23] MEDS: SODIUM CHLORIDE 0.9% FLUSH 5 ML FLUSH IVF SCH ×2 (09:00→21:00)
--- NOTE | 2017-01-23 19:44 | MP ---
cc: MICHEL BARBOSA MD, HANSCY M.D. DATE OF SURGERY: 01/20/2017. OPERATION: Biventricular pacer-defibrillator implantation and device testing. INDICATIONS FOR THE PROCEDURE: Mr. Cadena is a 67-year-old gentleman with congestive heart failure, cardiomyopathy and ejection fraction of 20% who ____ medical treatment who will undergo biventricular pacer-defibrillator insertion for sudden prevention and resynchronization therapy. The risks, the nature and the benefits of the procedure were clearly stated to him. the risks include pneumothorax, cardiac perforation, stroke and even . He understood and agreed to proceed. DESCRIPTION OF THE PROCEDURE IN DETAIL: After written informed consent was obtained prior to electrophysiology study, the patient was kept on the table where he was prepped and draped in the usual sterile fashion. Conscious sedation was initiated and maintained throughout the procedure by the anesthesiologist. Once sedation was verified, the left infraclavicular area was anesthetized with 2% Xylocaine. Using modified Seldinger technique, the left subclavian vein was cannulated on three occasions and three guidewires were advanced. Then using a #11 blade scalpel, a 3-cm incision was made two fingerbreadths below the left clavicle. Dissection was then taken down to the deep fascial layer using Bovie cautery and blunt dissection. Into the inferior direction, a device pocket was dissected and then the wire was dissected into the pocket. The 2-0 Vicryl suture was placed around the wire to prevent back bleeding. At this point, over the lateral wire, a 7-Burkinan dilator and introducer were advanced. As the dilator and wire were removed, an active fixation right ventricular pacing and sensing defibrillatory lead was advanced. After adequate pacing and sensing thresholds were obtained, the lead was taken into the pocket using #2 Ethibond suture. Then over the medial wire, a 7-Burkinan dilator and introducer were advanced. As dilator and wire were removed, an active fixation right atrial pacing and sensing lead was advanced. After adequate pacing and sensing thresholds were obtained, the lead was taken into the pocket using #2 Ethibond suture. Then over the remaining wire, a 9-Burkinan dilator and introducer were advanced. As the dilator and wire were removed, a CS cannulation sheath was advanced. After multiple attempts, the coronary sinus was cannulated. Cannulation of the coronary sinus was very difficult. Once cannulated, the sheath was advanced over the wire. CS venography showed a very small posterolateral branch and a lateral branch. I did cannulate the posterolateral branch but I was unable to advance the lead over the wire. Then the lateral branch was cannulated. The lead was advanced over the wire. After adequate pacing and sensing thresholds were obtained, the jenni introducer was removed and the cutter introducer was removed and the lead taking into the pocket using #2 Ethibond suture. There was some diaphragmatic stimulation but the proximal portion by pacing at the proximal pole of the lead, lead 2 and 3, there were no diaphragmatic stimulation. At that point, the pocket was copiously irrigated using antibiotic solution. The leads were connected to the generator and placed into the pocket. I did proceed with device testing. Initial induction consisted of a T-wave shock which induced ventricular fibrillation which was adequately detected and treated by the IC generator delivering a 20 joule defibrillatory shock converting the patient back into sinus rhythm. Shocking impedance is 38 Ohms. Charge time 3.6 seconds. At that point, NIPS was complete. I did proceed with wound closure. The deep fascial layer was approximated using #2-0 Vicryl suture in a continuous fashion. The subcutaneous layer was approximated with 2-0 Vicryl in a continuous fashion. The subcuticular layer was approximated with 2-0 Vicryl in a continuous fashion. Dermabond adhesive was applied to the wound followed by a pressure dressing. There were no complications. The patient tolerated procedure. The blood loss was minimal. I. IMPLANTED HARDWARE: The implanted biventricular pacer defibrillator is a [employer] model number [id number], serial number [id number]. The right atrial pacing and sensing lead is a [employer] model number 1688TC-52, serial number [id number]. The right ventricular pacing and sensing defibrillatory lead is a [employer] model number 7121C-65, serial number [id number]. The left ventricular pacing and sensing lead is a [employer] model #4598-88, serial number [id number]. THRESHOLDS: The right atrial pacing and sensing threshold in bipolar mode was 0.75 volts at 0.5 milliseconds. Lead impedance was 530 Ohms. P wave at 1.6 millivolts. The right ventricular pacing threshold in bipolar mode was 0.75 volts at 0.5 milliseconds. Lead impedance was 710 Ohms. R wave at 11.9 millivolts. The left ventricular pacing threshold in bipolar mode was 2.5 volts at 1 millisecond. SETTINGS: The device was set in a DDD60, upper rate limit 120 beats per minute, AV delay and pacing at 160 and sensed at 140, LV first at 40 milliseconds. The defibrillatory portion was sent for two zones: One zone for ventricular tachycardia between 160 and 240 beats per minute. Initial therapy consists of one burst of ATP, one ramp, 81% 10-pulse 10-millisecond decremental followed by 20 then 30 and all subsequent shocks at 40 joule defibrillatory shock. The second zone was set for ventricular fibrillation above 240 beats per minute with first therapy at 30 and all subsequent shocks at 40 joule defibrillatory shock. CONCLUSIONS: Successful biventricular pacer defibrillator insertion and device testing. COMMENTS AND RECOMMENDATIONS: The patient is going to be observed and when stable can be discharged home. ADDENDUM TO THE DICTATION: An hour or two later after the implant, the nurse called to report diaphragmatic stimulation. The device was interrogated by [employer]. Multiple configurations were tried. The patient still had some mild diaphragmatic stimulation. Again he reported discomfort due to the diaphragmatic stimulation. At that point, the device was turned off. I had a long conversation with the patient as well as his . At this point because there is no significant target in the coronary sinus, I am going to refer the patient for epicardial lead implantation. The case was discussed with Dr. Barbosa who will do the procedure on Wednesday. MD ADRIAN Fam/ALONZO /11:04 PM /7:21 PM
[2017-01-23] MEDS: TERAZOSIN HCL 5 MG CAP PO SCH (20:58)
[2017-01-23] MEDS: PANTOPRAZOLE SOD 40 MG DELAYED RELEASE TAB PO SCH (20:58)
[2017-01-23] MEDS: DOCUSATE CALCIUM 240 MG CAP PO SCH (20:58)
[2017-01-24] VITALS (15 sets, daily range): BP systolic 139–151; BP diastolic 76–88; PULSE 68–72; RESP 16–20; TEMP 98.3–98.8; O2SAT 90–93
[2017-01-24] MEDS: oxyCODONE/ACETAMINOPHEN 5 MG/325 MG TAB PO PRN ×3 (04:07→13:23)
[2017-01-24] MEDS: SODIUM CHLORIDE 0.9% FLUSH 5 ML FLUSH IV FLUSH SCH ×2 (04:07→09:22)
[2017-01-24] MEDS: RESP: ALBUTEROL 2.5 MG/3 ML NEB (SCH) NEB ×2 (04:46→08:09)
--- NOTE | 2017-01-24 06:56 | RADRPT ---
EXAM DATE/TIME: 01/24/2017 05:34 [facility] COMPARISON: CHEST SINGLE AP, January 23, 2017, 3:06. INDICATIONS : Shortness of breath, possible pulmonary disease. MEDICAL HISTORY : Cardiovascular disease. SURGICAL HISTORY : Pacemaker. Thoracotomy ENCOUNTER: Subsequent ACUITY: 3 days PAIN SCORE: 3/10 LOCATION: Bilateral chest FINDINGS: Persistent areas of infiltrate in the right infrahilar and left medial lower lung. The upper lungs r emain clear. The pacer leads stable. CONCLUSION: Stable bilateral lower lung infiltrates. Dov Saravia MD on January 24, 2017 at 6:54 Board Certified Radiologist. This report was verified electronically.
[2017-01-24] MEDS: SODIUM CHLORIDE 0.9% FLUSH 5 ML FLUSH IVF SCH (09:00)
[2017-01-24] MEDS: LOSARTAN 50 MG TAB PO SCH (09:22)
[2017-01-24] MEDS: PRAVASTATIN SOD 80 MG TAB PO SCH (09:22)
[2017-01-24] MEDS: amLODIPine BESYLATE 5 MG TAB PO SCH (09:22)
[2017-01-24] MEDS: FAMOTIDINE 20 MG TAB PO SCH (09:23)
[2017-01-24] MEDS: CARVEDILOL 3.125 MG TAB PO SCH (09:23)
[2017-01-24] MEDS: HYDROCHLOROTHIAZIDE 25 MG TAB PO SCH (09:23)
[2017-01-24] MEDS ORDERED: OXYC1TAB63 PO (09:59)
--- NOTE | 2017-01-24 10:02 | HHI.DS ---
Discharge Summary Admission Date Jan 21, 2017 at 17:44 Discharge Date: Jan 24, 2017 Admitting Diagnosis CBC/BMP: 01/23/17 0354 01/23/17 0354 Significant Findings Laboratory Tests Test 01/23/17 03:54 White Blood Count 12.2 TH/MM3 (4.0-11.0) Red Blood Count 4.32 MIL/MM3 (4.50-5.90) Hematocrit 38.4 % (39.0-51.0) Platelet Count 110 TH/MM3 (150-450) Neutrophils (%) (Auto) 78.9 % (16.0-70.0) Lymphocytes (%) (Auto) 7.4 % (9.0-44.0) Monocytes (%) (Auto) 13.6 % (0.0-8.0) Neutrophils # (Auto) 9.6 TH/MM3 (1.8-7.7) Lymphocytes # (Auto) 0.9 TH/MM3 (1.0-4.8) Monocytes # (Auto) 1.6 TH/MM3 (0-0.9) Blood Urea Nitrogen 25 MG/DL (7-18) Estimat Glomerular Filtration 62 ML/MIN (>89) Rate Random Glucose 138 MG/DL (74-106) Hospital Course 01/22 PROCEDURES 1. Left Lateral Mini-Thoracotomy 2. Epicardial Left Ventricular Lead Placement 3. Removal of Coronary Sinus Lead 4. Removal and Replacement of BiVentricular Pacemaker-AICD Generator Device 5. Intercostal nerve Block. 01/23 Doing well Expect removal of CT tomorrow and discharge home in am 01/24 CT removed Discharge home Pt Condition on Discharge: Good Discharge Disposition: Disch w/ Home Health Serv Discharge Instructions DIET: Follow Instructions for: Heart Healthy Diet Activities you can perform: Full Weight Bearing, Shower Only-No Bath Activities to avoid: Lifting/Bending, Strenuous Activity, Driving, Sexual Activity Follow up Referrals: Cardiology PCP Follow-up Surgical New Medications: Cephalexin (Keflex) 500 Mg Cap 500 MG PO Q8H Infection #15 Ref 1 CAP Oxycodone-Acetaminophen (Oxycodone-Acetaminophen) 5-325 mg Tab 1 TAB PO Q4H PRN PAIN SCALE 1 TO 4 #30 TAB Continued Medications: Amlodipine (Amlodipine) 5 Mg Tab 5 MG PO DAILY Blood Pressure Management #30 Ref [address] (Aspir-81) 81 Mg Tabdr Carvedilol (Carvedilol) 3.125 Mg Tab 3.125 MG PO BID #60 Ref 0 TAB Hydrochlorothiazide (Hydrochlorothiazide) 25 Mg Tab 25 MG PO DAILY #30 Ref 0 TAB Losartan (Losartan) 100 Mg Tab 100 MG PO DAILY Blood Pressure Management #30 Ref 0 TAB Pravastatin (Pravastatin) 80 Mg Tab 80 MG PO DAILY Cholesterol Management #30 Ref 0 TAB Ranitidine (Ranitidine) 300 Mg Tab 300 MG PO HS Heartburn Management #30 Ref 0 TAB Terazosin (Terazosin) 10 Mg Cap 20 MG PO HS #60 Ref 0 CAP Lauren Watson MD Jan 24, 2017 10:02
--- NOTE | 2017-01-24 10:04 | HHI.FF ---
Face to Face Verification Diagnosis: (1) Cardiomyopathy (2) S/P biventricular cardiac pacemaker procedure Home Health Nursing Order: Medical education Wound care and dressing changes Nursing assessment with vital signs I have seen patient Carlos Alberto Cadena on 01/24/17. My clinical findings support the need for the requested home health care services because: Deconditioned w/ increased weakness I certify that my clinical findings support that this patient is homebound because: Post-op weakness Lauren Watson MD Jan 24, 2017 10:04
== END 2017-01-24 13:40 | disposition home health service (06) | DRG 227 ==
LOC: HDOC 05:44 → HDIC 05:45 → HCIS 14:53 → HDOC 01-21 17:43 → HCIS 01-21 17:44
PROVIDERS: ADMIT Internal Medicine Interventional Cardiology; ATTEND Thoracic Surgery (Cardiothoracic Vascular Surgery)
PROC: 02H63KZ Insertion of Defibrillator Lead into Right Atrium, Percutaneous Approach (ICD-10-PCS; 2017-01-20)
PROC: 02HK3KZ Insertion of Defibrillator Lead into Right Ventricle, Percutaneous Approach (ICD-10-PCS; 2017-01-20)
PROC: 4A0234Z Measurement of Cardiac Electrical Activity, Percutaneous Approach (ICD-10-PCS; 2017-01-20)
PROC: 0JH609Z Insertion of Cardiac Resynchronization Defibrillator Pulse Generator into Chest Subcutaneous Tissue and Fascia, Open Approach (ICD-10-PCS; principal; 2017-01-20 07:30)
PROC: 02HK3KZ Insertion of Defibrillator Lead into Right Ventricle, Percutaneous Approach (ICD-10-PCS; 2017-01-22)
PROC: 02HN0KZ Insertion of Defibrillator Lead into Pericardium, Open Approach (ICD-10-PCS; 2017-01-22)
PROC: 02PA0MZ Removal of Cardiac Lead from Heart, Open Approach (ICD-10-PCS; 2017-01-22)
PROC: 02H63KZ Insertion of Defibrillator Lead into Right Atrium, Percutaneous Approach (ICD-10-PCS; 2017-01-22)
PROC: 3E0T3CZ (ICD-10-PCS; 2017-01-22)
DX: I50.9 Heart failure, unspecified (principal); I42.8 Other cardiomyopathies; T82.110A Breakdown (mechanical) of cardiac electrode, initial encounter; G47.30 Sleep apnea, unspecified; I10 Essential (primary) hypertension; K21.9 Gastro-esophageal reflux disease without esophagitis; E66.9 Obesity, unspecified; E78.2 Mixed hyperlipidemia; Z68.35 Body mass index [BMI] 35.0-35.9, adult; Y83.1 Surgical operation with implant of artificial internal device as the cause of abnormal reaction of the patient, or of later complication, without mention of misadventure at the time of the procedure
CPT/HCPCS: 33225; 33249; 71010; 80048; 81001; 85025; 85610; 85730; 86850; 86900; 86901; 87641; 93005; 93620; 94150; 94640; 94664; 94762; C1730; C1769; C1882; C1895; C1896; C1898; C1900; C9290; J0131; J0690; J1100; J1644; J1885; J2250; J2270; J2405; J3010; J3370; J7120; J7613